=== PATIENT | male | born 1980 | race Caucasian/White ===

== ENCOUNTER 2018-10-04 11:42 | Inpatient (IN) | payer MEDICAID ==
[~2018-10-04] VITALS: Ht 170.2 cm; Wt 135.0 kg
[~2018-10-04 11:42] MED LIST: FLUT1DIS5 INH; LEVO750T26 PO; PRED20TA PO
[2018-10-04] MEDS ORDERED: albuterol INH (12:22)
[2018-10-04] MEDS ORDERED: ALBUTEROL SULFATE 2.5 MG/3 ML NPPB SCH (13:00)
[2018-10-04 13:14] LABS: BASOPHILS # (AUTO) 0.05 x10^3/uL (0-0.1); BASOPHILS % (AUTO) 0 % (0-1); EOSINOPHILS # (AUTO) 0.32 x10^3/uL (0-0.4); EOSINOPHILS % (AUTO) 3 % (1-7); LYMPHOCYTES # (AUTO) 1.27 x10^3/uL (1-3.4); LYMPHOCYTES % (AUTO) 11 % (22-44); MD NO; MEAN CORPUSCULAR HEMOGLOBIN 30.8 pg (27.5-34.5); MEAN CORPUSCULAR HGB CONC 33.7 g/dL (33.2-36.2); MEAN CORPUSCULAR VOLUME 91.4 fL (81-97); MEAN PLATELET VOLUME 7.9 fL (7.4-10.4); MONOCYTES # (AUTO) 1.21 x10^3/uL (0.2-0.8); MONOCYTES % (AUTO) 11 % (2-9); NEUTROPHILS # (AUTO) 8.74 x10^3/uL (1.8-6.8); NEUTROPHILS % (AUTO) 75 % (42-75); PLATELET COUNT 422 x10^3/uL (130-400); RED BLOOD COUNT 4.99 x10^6/uL (4.38-5.82); RED CELL DISTRIBUTION WIDTH 13.5 % (9.4-14.8)
[2018-10-04] MEDS ORDERED: ALBUTEROL SULFATE 2.5 MG/3 ML ONE (13:18)
[2018-10-04] MEDS ORDERED: CEFTRIAXONE 1,000 MG in SODIUM CHLORIDE 0.9% 50 ML IVPB ONE (13:30)
[2018-10-04 13:36] LABS: ALBUMIN 2.8 g/dL (3.4-5.0); ANION GAP 9 mmol/L (5-15); CALCIUM 8.4 mg/dL (8.5-10.1); CHLORIDE 107 mmol/L (98-107); CREATININE 0.69 mg/dL (0.7-1.3)
[2018-10-04] MEDS ORDERED: CEFTRIAXONE PMX 1GM/50ML 50 ML ONE ×2 (13:59→15:44)
[2018-10-04] MEDS ORDERED: hydrALAzine 20 MG/ML, 1ML IVPush PRN (15:30)
[2018-10-04] MEDS ORDERED: ACETAMINOPHEN 325 MG TABLET PO PRN (15:30)
[2018-10-04] MEDS ORDERED: methylPREDNISolone SOD SUCC 125 MG/2 ML IVPush SCH (15:30)
[2018-10-04] MEDS ORDERED: CEFTRIAXONE PMX 2GM/50ML 50 ML IV SCH (15:30)
[2018-10-04] MEDS ORDERED: CEFTRIAXONE PMX 1GM/50ML 50 ML IV ONE (15:30)
[2018-10-04] MEDS ORDERED: POTASSIUM CHLORIDE 40 MEQ in SODIUM CHLORIDE 0.9% 1,000 ML IV SCH (15:30)
[2018-10-04] MEDS ORDERED: methylPREDNISolone SOD SUCC 125 MG/2 ML ONE (15:44)
[2018-10-04] MEDS ORDERED: HEPARIN 5,000 UNITS/ML, 1ML ONE (15:55)
[2018-10-04] MEDS ORDERED: DOXYCYCLINE 100MG TABLET ONE (15:55)
[2018-10-04 15:56] LABS: HEMOGLOBIN A1C 5.4 % (4.2-6.3)
[2018-10-04] MEDS: DOXYCYCLINE 100MG TABLET PO SCH ×2 (15:57→20:46)
[2018-10-04] MEDS: HEPARIN 5,000 UNITS/ML, 1ML SQ SCH (15:59)
[2018-10-04] MEDS ORDERED: ALBUTEROL SULFATE 2.5 MG/3 ML NPPB PRN (16:00)
[2018-10-04 16:36] VITALS: BP 113/75
[2018-10-04 18:55] VITALS: BP 128/82
[2018-10-04] MEDS: ALBUTEROL SULFATE 2.5 MG/3 ML NPPB SCH (21:00)
[2018-10-05 01:33] VITALS: BP 110/74
[2018-10-05 04:59] LABS: MEAN CORPUSCULAR HEMOGLOBIN 30.8 pg (27.5-34.5); MEAN CORPUSCULAR HGB CONC 33.7 g/dL (33.2-36.2); MEAN CORPUSCULAR VOLUME 91.5 fL (81-97); MEAN PLATELET VOLUME 8.2 fL (7.4-10.4); PLATELET COUNT 419 x10^3/uL (130-400); RED BLOOD COUNT 4.62 x10^6/uL (4.38-5.82); RED CELL DISTRIBUTION WIDTH 13.8 % (9.4-14.8)
[2018-10-05] MEDS: HEPARIN 5,000 UNITS/ML, 1ML SQ SCH ×3 (05:07→19:44)
[2018-10-05 05:11] LABS: ANION GAP 7 mmol/L (5-15); CALCIUM 8.2 mg/dL (8.5-10.1); CHLORIDE 109 mmol/L (98-107); CREATININE 0.53 mg/dL (0.7-1.3)
[2018-10-05 05:54] LABS: BASOPHILS # (AUTO) 0.08 x10^3/uL (0-0.1); BASOPHILS % (AUTO) 1 % (0-1); EOSINOPHILS # (AUTO) 0.45 x10^3/uL (0-0.4); EOSINOPHILS % (AUTO) 4 % (1-7); LYMPHOCYTES # (AUTO) 1.82 x10^3/uL (1-3.4); LYMPHOCYTES % (AUTO) 17 % (22-44); MD SCAN; MONOCYTES # (AUTO) 1.46 x10^3/uL (0.2-0.8); MONOCYTES % (AUTO) 14 % (2-9); NEUTROPHILS # (AUTO) 6.99 x10^3/uL (1.8-6.8); NEUTROPHILS % (AUTO) 65 % (42-75)
[2018-10-05] MEDS: ALBUTEROL SULFATE 2.5 MG/3 ML NPPB SCH ×4 (06:42→19:52)
[2018-10-05 06:55] VITALS: BP 152/85
[2018-10-05] MEDS: DOXYCYCLINE 100MG TABLET PO SCH ×2 (07:34→19:44)
[2018-10-05 13:05] VITALS: BP 130/76
[2018-10-05] MEDS: CEFTRIAXONE PMX 2GM/50ML 50 ML IV SCH (15:32)
[2018-10-05 19:14] VITALS: BP 132/79
[2018-10-06 01:08] VITALS: BP 128/82
[2018-10-06] MEDS: HEPARIN 5,000 UNITS/ML, 1ML SQ SCH ×3 (04:33→20:46)
[2018-10-06 05:58] LABS: BASOPHILS # (AUTO) 0.19 x10^3/uL (0-0.1); BASOPHILS % (AUTO) 2 % (0-1); EOSINOPHILS # (AUTO) 0.33 x10^3/uL (0-0.4); EOSINOPHILS % (AUTO) 3 % (1-7); LYMPHOCYTES # (AUTO) 1.84 x10^3/uL (1-3.4); LYMPHOCYTES % (AUTO) 18 % (22-44); MD NO; MEAN CORPUSCULAR HEMOGLOBIN 30.9 pg (27.5-34.5); MEAN CORPUSCULAR HGB CONC 33.9 g/dL (33.2-36.2); MEAN CORPUSCULAR VOLUME 91.2 fL (81-97); MEAN PLATELET VOLUME 8.4 fL (7.4-10.4); MONOCYTES # (AUTO) 1.05 x10^3/uL (0.2-0.8); MONOCYTES % (AUTO) 11 % (2-9); NEUTROPHILS # (AUTO) 6.65 x10^3/uL (1.8-6.8); NEUTROPHILS % (AUTO) 66 % (42-75); PLATELET COUNT 457 x10^3/uL (130-400); RED BLOOD COUNT 4.72 x10^6/uL (4.38-5.82); RED CELL DISTRIBUTION WIDTH 13.9 % (9.4-14.8)
[2018-10-06 06:10] LABS: ANION GAP 8 mmol/L (5-15); CALCIUM 8.8 mg/dL (8.5-10.1); CHLORIDE 107 mmol/L (98-107); CREATININE 0.51 mg/dL (0.7-1.3)
[2018-10-06] MEDS: ALBUTEROL SULFATE 2.5 MG/3 ML NPPB SCH ×4 (06:39→19:24)
[2018-10-06 07:06] VITALS: BP 135/83
[2018-10-06] MEDS: DOXYCYCLINE 100MG TABLET PO SCH ×2 (07:19→20:45)
[2018-10-06] MEDS: GUAIFENESIN ER 600 MG TABLET PO SCH ×2 (09:37→20:45)
[2018-10-06 14:27] VITALS: BP 137/79
[2018-10-06] MEDS: CEFTRIAXONE PMX 2GM/50ML 50 ML IV SCH (14:49)
[2018-10-06 18:50] VITALS: BP 106/69
[2018-10-07 01:58] VITALS: BP 132/85
[2018-10-07] MEDS: HEPARIN 5,000 UNITS/ML, 1ML SQ SCH ×3 (05:12→20:53)
[2018-10-07 05:24] LABS: ALANINE AMINOTRANSFERASE 22 U/L (12-78); ALBUMIN 2.5 g/dL (3.4-5.0); ANION GAP 5 mmol/L (5-15); CALCIUM 8.5 mg/dL (8.5-10.1); CHLORIDE 107 mmol/L (98-107); CREATININE 0.57 mg/dL (0.7-1.3)
[2018-10-07 05:27] LABS: ALKALINE PHOSPHATASE 101 U/L (45-117); BILIRUBIN,TOTAL 0.4 mg/dL (0.2-1.0)
[2018-10-07] MEDS: ALBUTEROL SULFATE 2.5 MG/3 ML NPPB SCH ×4 (06:45→18:41)
[2018-10-07 07:10] VITALS: BP 136/80
[2018-10-07] MEDS: DOXYCYCLINE 100MG TABLET PO SCH ×2 (07:39→20:54)
[2018-10-07] MEDS: GUAIFENESIN ER 600 MG TABLET PO SCH ×2 (07:39→20:54)
[2018-10-07] MEDS: methylPREDNISolone SOD SUCC 125 MG/2 ML IVPush SCH ×3 (10:37→20:53)
[2018-10-07 14:11] VITALS: BP 139/78
[2018-10-07] MEDS: CEFTRIAXONE PMX 2GM/50ML 50 ML IV SCH (15:31)
[2018-10-07 19:02] VITALS: BP 142/82
[2018-10-08 00:19] VITALS: BP 150/83
[2018-10-08] MEDS: methylPREDNISolone SOD SUCC 125 MG/2 ML IVPush SCH ×2 (04:17→16:32)
[2018-10-08] MEDS: HEPARIN 5,000 UNITS/ML, 1ML SQ SCH ×3 (05:00→20:11)
[2018-10-08 06:19] VITALS: BP 156/91
[2018-10-08] MEDS: ALBUTEROL SULFATE 2.5 MG/3 ML NPPB SCH ×4 (07:12→19:42)
[2018-10-08] MEDS: GUAIFENESIN ER 600 MG TABLET PO SCH ×2 (09:09→20:10)
[2018-10-08] MEDS: DOXYCYCLINE 100MG TABLET PO SCH ×2 (09:09→20:11)
[2018-10-08 13:02] VITALS: BP 127/83
[2018-10-08] MEDS: CEFTRIAXONE PMX 2GM/50ML 50 ML IV SCH (15:14)
[2018-10-08 18:39] VITALS: BP 132/84
[2018-10-09 01:10] VITALS: BP 128/83
[2018-10-09] MEDS: methylPREDNISolone SOD SUCC 125 MG/2 ML IVPush SCH (04:28)
[2018-10-09] MEDS: HEPARIN 5,000 UNITS/ML, 1ML SQ SCH (05:00)
[2018-10-09 06:32] VITALS: BP 138/78
[2018-10-09] MEDS: ALBUTEROL SULFATE 2.5 MG/3 ML NPPB SCH ×2 (07:00→11:00)
[2018-10-09] MEDS: GUAIFENESIN ER 600 MG TABLET PO SCH (08:44)
[2018-10-09] MEDS: DOXYCYCLINE 100MG TABLET PO SCH (08:45)
[2018-10-09] MEDS ORDERED: CEFD300C37 PO (10:32)
[2018-10-09] MEDS ORDERED: DOXY100T PO (10:32)
[2018-10-09] MEDS ORDERED: GUAI600T31 PO (10:32)
[2018-10-09] MEDS ORDERED: PRED20TA PO (10:36)
[2018-10-09 11:48] VITALS: BP 129/83
== END 2018-10-09 12:40 | disposition home or self-care (01) | DRG 193 ==
LOC: ED 13:16 → EDIP 15:04 → 3NE 16:36 → DCLOUNGE 10-09 12:25
PROVIDERS: ADMIT Internal Medicine; ATTEND Internal Medicine
DX: J15.9 Unspecified bacterial pneumonia (principal); J96.01 Acute respiratory failure with hypoxia; Z68.41 Body mass index [BMI] 40.0-44.9, adult; E66.01 Morbid (severe) obesity due to excess calories; J45.909 Unspecified asthma, uncomplicated; J02.9 Acute pharyngitis, unspecified
CPT/HCPCS: 36415; 84145; 99285; J7613; 71045; 71250; 80048; 80053; 82040; 83036; 83605; 83735; 84100; 85025; 85379; 87040; 87070; 87205; 93005; 94640; 96365; 96372; G0378; J0696; J1644; J3480; J2930; J7030